=== PATIENT | male | born 1965 | race Caucasian/White ===

== ENCOUNTER 2017-07-08 13:42 | Day surgery (SDC) | payer OTHER ==
[~2017-07-08] VITALS: Ht 175.3 cm; Wt 84.0 kg
[~2017-07-08 13:42] MED LIST: FLONASE SENSIM9.9 ML BOTH NARES; SINGULAIR10 MG PO; SYMBICORT60 INHALAT IH; VENTOLIN HFA18 GM IH
[2017-07-08 14:08] VITALS: BP 152/88
[2017-07-08 20:40] VITALS: BP 127/77
[2017-07-08 21:15] VITALS: BP 118/78
== END 2017-07-08 21:25 | disposition home or self-care (01) ==
LOC: SDC 13:42
DX: H33.012 Retinal detachment with single break, left eye (principal)
CPT/HCPCS: J0690; J1100; J2250; J2405; J3010